=== PATIENT | female | born 1980 | race Caucasian/White ===

== ENCOUNTER 2018-10-11 15:09 | Emergency (ER) | payer MEDICAID, OTHER | END 2018-10-11 18:16 | disposition home or self-care (01) | LOC: E/R 15:09 | DX: J45.909 Unspecified asthma, uncomplicated (principal); F17.210 Nicotine dependence, cigarettes, uncomplicated; Z76.0 Encounter for issue of repeat prescription | CPT/HCPCS: 99281; Z7502 ==

== ENCOUNTER 2019-01-19 20:21 | Emergency (ER) | payer SELFPAY, MEDICAID | END 2019-01-20 01:50 | disposition home or self-care (01) | LOC: FTE 20:21 | DX: H10.33 Unspecified acute conjunctivitis, bilateral (principal); J45.909 Unspecified asthma, uncomplicated; Z87.891 Personal history of nicotine dependence | CPT/HCPCS: 99283 ==